=== PATIENT | female | born 1965 | race Caucasian/White ===

== ENCOUNTER → 2016-11-29 | Outpatient (CLI) | payer BC ==
--- NOTE | 2016-11-29 11:53 | XR ---
EXAMINATION TYPE: XR knee complete RT DATE OF EXAM: 11/29/2016 COMPARISON: NONE HISTORY: Right knee pain, fall TECHNIQUE: 4 view right knee FINDINGS: No joint effusion is evident. Minimal tibial plateau spurring is present medially. Joint sp aces are preserved. IMPRESSION: 1. No acute or subacute osseous abnormality.
== END | disposition home or self-care (01) ==
LOC: RADXRMAIN 11:04
PROVIDERS: ATTEND Physician Assistant
DX: M25.561 Pain in right knee (principal)

== ENCOUNTER → 2020-07-28 | Outpatient (CLI) | payer BC ==
--- NOTE | 2020-07-28 12:20 | XR ---
EXAMINATION TYPE: XR cervical spine limited DATE OF EXAM: 07/28/2020 Comparison: None Clinical History: 55 year-old female G54.2 LEFT CERVICAL ROOT NEUROPATHY Findings: No predental space widening or prevertebral soft tissue swelling. Degenerative changes of the C1 dens articulation. Moderate disc/endplate degenerative change C6-C7 with anterior endplate spondylosis. M ild degenerative disc disease elsewhere. Facet and uncovertebral joint arthropathy mid to lower cervi abelino spine. Normal odontoid view. Reversal of the normal cervical lordosis "preserved alignment. Impression: Mild to moderate spondylotic change, greatest at C6-C7. Reversal of the normal cervical lordosis coul d be positional or due to muscle spasm. No malalignment.
== END | disposition home or self-care (01) ==
LOC: RADXRMAIN 11:06
PROVIDERS: ATTEND Family Medicine
DX: M47.812 Spondylosis without myelopathy or radiculopathy, cervical region (principal)
CPT/HCPCS: 72040

== ENCOUNTER 2020-11-02 20:40 | Emergency (ER) | payer BC ==
[2020-11-02] MEDS ORDERED: CYCLOBENZAPRINE 10MG STARTER 3 TAB BTL PO STA (21:27)
[2020-11-02 22:28] VITALS: RESP 20
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
[2020-11-02] MEDS ORDERED: HYDROcodone/APAP 5-325MG 1 EACH TAB PO STA ×2 (22:45→23:26)
[2020-11-02 23:35] VITALS: BP 141/86; PULSE 88; TEMP 98
== END 2020-11-02 23:35 | disposition home or self-care (01) ==
LOC: EC 20:40
DX: S32.010A Wedge compression fracture of first lumbar vertebra, initial encounter for closed fracture (principal); E07.9 Disorder of thyroid, unspecified; R32 Unspecified urinary incontinence; I10 Essential (primary) hypertension; Z79.890 Hormone replacement therapy; Z79.899 Other long term (current) drug therapy; W20.8XXA Other cause of strike by thrown, projected or falling object, initial encounter; Y92.814 Boat as the place of occurrence of the external cause
CPT/HCPCS: 51798; 72131; 99284

== ENCOUNTER 2021-09-30 08:48 | Day surgery (SDC) | payer BC ==
--- NOTE | 2021-09-30 07:36 | P.GSHP ---
History of Present Illness H&P Date: 09/30/21 CHIEF COMPLAINT: Colon screen HISTORY OF PRESENT ILLNESS: The patient is a 56-year-old female who presents for colon screen. Lower endoscopy was offered for further evaluation and management. PAST MEDICAL HISTORY: Please see list. PAST SURGICAL HISTORY: Please see list. MEDICATIONS: Please see list. ALLERGIES: Please see list. SOCIAL HISTORY: No illicit drug use FAMILY HISTORY: No reports of Crohn disease or ulcerative colitis. REVIEW OF ORGAN SYSTEMS: CONSTITUTIONAL: No reports of fevers or chills. PHYSICAL EXAM: VITAL SIGNS: Stable GENERAL: Well-developed pleasant in no acute distress. HEENT: No scleral icterus. Extraocular movements grossly intact. Moist buccal mucosa. NECK: Supple without lymphadenopathy. CHEST: Unlabored respirations. Equal bilateral excursions. CARDIOVASCULAR: Regular rate and rhythm. Distal 2+ pulses. ABDOMEN: Soft, nontender, nondistended. MUSCULOSKELETAL: No clubbing, cyanosis, or edema. ASSESSMENT: 1. Colon screen. PLAN: 1. Recommend proceeding with a lower endoscopy Past Medical History Past Medical History: Hypertension, Thyroid Disorder Additional Past Medical History / Comment(s): hx sarcoidosis in remission, vertigo History of Any Multi-Drug Resistant Organisms: None Reported Past Surgical History: Section, Orthopedic Surgery, Tonsillectomy, Tubal Ligation Additional Past Surgical History / Comment(s): RIGHT KNEE REPLACEMENT 02/2021. lt ankle with screws and plate Past Anesthesia/Blood Transfusion Reactions: No Reported Reaction Past Psychological History: Depression Smoking Status: Never smoker Past Alcohol Use History: Occasional Past Drug Use History: None Reported - Past Family History Father Family Medical History: Cancer Additional Family Medical History / Comment(s): pancreatic cancer Medications and Allergies Home Medications Medication Instructions Recorded Confirmed Type FLUoxetine HCL [Sarafem] 10 mg PO QAM 07/12/16 09/28/21 History Multivitamins, Thera [Multivitamin 1 tab PO DAILY 07/12/16 09/28/21 History (formulary)] hydroCHLOROthiazide 25 mg PO QAM 07/12/16 09/28/21 History Glucosamine Sulfate 1 cap PO DAILY 09/28/21 09/28/21 History Levothyroxine Sodium [Synthroid] 175 mg PO QAM 09/28/21 09/28/21 History Allergies Allergy/AdvReac Type Severity Reaction Status Date / Time No Known Allergies Allergy Verified 09/28/21 13:57
[~2021-09-30 08:48] MED LIST: LACTATED RINGERS 1,000 ML IV SCH; LIDOCAINE 1% (10MG/ML) FOR IV START INTRADERMA PRN
[2021-09-30 09:15] VITALS: TEMP 97.2
[2021-09-30] MEDS ORDERED: PROPOFOL 10 MG/ML 20 ML VIAL IV ONE (09:52)
[2021-09-30 10:18] VITALS: RESP 16
--- NOTE | 2021-09-30 10:30 | P.PCN ---
Date of Procedure: 09/30/21 Description of Procedure: PREOPERATIVE DIAGNOSIS: Personal history of colon polyps Colonoscopy screening POSTOPERATIVE DIAGNOSIS: Personal history of colon polyps Tubular adenoma ascending colon Tubular adenoma rectum Scattered diverticulosis Internal hemorrhoids, grade 2 OPERATION: Colonoscopy to the ileocecal valve and appendiceal orifice, cecum Colonoscopy with cold forceps biopsy SURGEON: Ana Benavides MD. ANESTHESIA: MAC. INDICATIONS: The patient is an 56-year-old female who presents personal history of colon polyps. Last colonoscopy 5 years. Benefits and risks were described and informed consent was obtained. DESCRIPTION OF PROCEDURE: The patient had undergone [place] prep. The patient had been brought into the operating room and laid in the left lateral decubitus position. After adequate intravenous sedation, the rectum was examined with 2% lidocaine jelly. External hemorrhoids were encountered. The rectal tone was within normal limits. No lesions were palpated in the rectal vault. An Olympus colonoscope was advanced until the cecum, ileocecal valve and appendiceal orifice were clearly viewed. The prep was excellent. Few diverticulosis was encountered. Colonic polyps were found and removed. No evidence of focal colitis was found. Retroflexion of the scope demonstrated grade 2 internal hemorrhoids without active bleeding or inflammation. The colon was desufflated. The patient had tolerated the procedure well. Withdrawal time was over 6 minutes. FINDINGS: Aronchick preparation quality scale 1 (1-5) Internal hemorrhoids, grade 2 External hemorrhoids, grade 2. No arteriovenous malformations. Few diverticulosis Removal of 2 polyps: - Cold forceps biopsy at 10 cm from the anal verge, 4 mm polyp, rectum - Cold forceps biopsy at 40 cm from the anal verge, 5 mm polyp, descending colon No focal colitis. RECOMMENDATIONS: Given severity of tubular adenomas, recommend repeat colonoscopy 3 years, 2024 Plan - Discharge Summary Discharge Rx Participant: No New Discharge Prescriptions: Continue Multivitamins, Thera [Multivitamin (formulary)] 1 tab PO DAILY hydroCHLOROthiazide 25 mg PO QAM FLUoxetine HCL [Sarafem] 10 mg PO QAM Levothyroxine Sodium [Synthroid] 175 mg PO QAM Glucosamine Sulfate 1 cap PO DAILY Discharge Medication List FLUoxetine HCL [Sarafem] 10 mg PO QAM 07/12/16 [History] Multivitamins, Thera [Multivitamin (formulary)] 1 tab PO DAILY 07/12/16 [History] hydroCHLOROthiazide 25 mg PO QAM 07/12/16 [History] Glucosamine Sulfate 1 cap PO DAILY 09/28/21 [History] Levothyroxine Sodium [Synthroid] 175 mg PO QAM 09/28/21 [History] Follow up Appointment(s)/Referral(s): Ana Benavides MD [STAFF PHYSICIAN] - As Needed Patient Instructions/Handouts: Colorectal Polyps (GEN), Diverticulosis Diet (GEN), Diverticulosis (DC) Activity/Diet/Wound Care/Special Instructions: Repeat colonoscopy 3 years, 2024 Discharge Disposition: HOME SELF-CARE
[2021-09-30 10:40] VITALS: BP 115/58; PULSE 74
== END 2021-09-30 11:23 | disposition home or self-care (01) ==
LOC: ORWHC2ENDO 08:48
PROVIDERS: ATTEND Surgery Plastic and Reconstructive Surgery
DX: Z12.11 Encounter for screening for malignant neoplasm of colon (principal); K63.5 Polyp of colon; Z86.010 Personal history of colon polyps; K57.30 Diverticulosis of large intestine without perforation or abscess without bleeding; K64.1 Second degree hemorrhoids; K64.4 Residual hemorrhoidal skin tags; I10 Essential (primary) hypertension; E07.9 Disorder of thyroid, unspecified; D86.9 Sarcoidosis, unspecified; R42 Dizziness and giddiness; Z98.891 History of uterine scar from previous surgery; Z98.51 Tubal ligation status; Z96.651 Presence of right artificial knee joint; Z98.890 Other specified postprocedural states; F32.A Depression, unspecified; Z80.0 Family history of malignant neoplasm of digestive organs; Z79.890 Hormone replacement therapy; Z79.899 Other long term (current) drug therapy
CPT/HCPCS: 88305; 45380; J2704

== ENCOUNTER → 2023-07-15 | Outpatient (CLI) | payer BC ==
[2023-07-15 15:52] LABS: Basophils # (A) 0.03 X 10*3/uL (0.00-0.10); Basophils % (A) 0.4 %; Eosinophils # (A) 0.03 X 10*3/uL (0.04-0.35); Eosinophils % (A) 0.4 %; HCT 42.7 % (37.2-46.3); HGB 14.3 g/dL (12.0-15.0); Lymphocytes # (A) 1.77 X 10*3/uL (0.90-5.00); Lymphocytes % (A) 25.4 %; MCH 31.6 pg (27.0-32.0); MCHC 33.5 g/dL (32.0-37.0); MCV 94.3 FL (80.0-97.0); Mean Platelet Volume 10.2 FL (9.5-12.2); Monocytes # (A) 0.48 X 10*3/uL (0.20-1.00); Monocytes % (A) 6.9 %; NRBC Per 100 WBC 0 X 10*3/uL (0.00-0.01); Neutrophils # (A) 4.65 X 10*3/uL (1.80-7.70); Neutrophils % (A) 66.8 %; Platelet Count 279 X 10*3/uL (140-440); RBC 4.53 X 10*6/uL (4.10-5.20); RDW 12.1 % (11.5-14.5); WBC 6.97 X 10*3/uL (4.50-10.00)
[2023-07-15 16:18] LABS: Chol/HDL Ratio 4.22 Ratio; VLDL Calculation 15.04 mg/dL (5.00-40.00)
[2023-07-15 16:19] LABS: BUN/Creat Ratio 21.43 Ratio (12.00-20.00); Carbon Dioxide 28.7 mmol/L (21.6-31.8); Chloride 96 mmol/L (96-109); Glucose 94 mg/dL (70-110); LDL Cholesterol,Calculated 187.9 mg/dL (0.0-131.0); Potassium 4.3 mmol/L (3.5-5.5); Sodium 136 mmol/L (135-145)
[2023-07-15 16:51] LABS: T4, Free (Free Thyroxine) 2.06 ng/dL (0.80-1.80)
== END | disposition home or self-care (01) ==
LOC: LABWHC1 10:33
PROVIDERS: ATTEND Family Medicine
DX: I10 Essential (primary) hypertension (principal); E78.2 Mixed hyperlipidemia; E03.8 Other specified hypothyroidism
CPT/HCPCS: 36415; 80048; 80061; 84439; 84443; 85025